=== PATIENT | male | born 1955 | race Caucasian/White ===

== ENCOUNTER 2025-09-26 16:04 | Inpatient (IN) | payer MEDICARE ==
[~2025-09-26 16:04] MED LIST: ACET1TAB55 PO; ATIV1TAB7 PO; ATRO2DRO4 SL; B-12100011 SL; DEXA4TA PO; FOLI1TAB11 PO; HYOS125TA SL; KEPP1TAB PO; MAG30ORA8 PO; MILKSUS3 PO; MOM30SS2 PO; MORP1SOL SL; MOUKOT60 MT; OLAN5ZYD PO; ONDA-282 PO; PANT40TA29 PO; PIPE4INJ IV; POLY1.4S OU; PROC10TA5 PO; SENN-186 PO; SENN-208 PO; TRAZ-252 PO; haloperidoL IM; haloperidoL IV
[2025-09-26] MEDS ORDERED: SCOPOLAMINE 1MG TRANSDERMAL PATCH TOP PRN (16:45)
[2025-09-26] MEDS ORDERED: ONDANSETRON 4MG ORAL DISINTEGRATING TAB PO PRN (16:45)
[2025-09-26] MEDS ORDERED: BISACODYL 10 MG SUPP PR PRN (16:45)
[2025-09-26] MEDS ORDERED: MORPHINE 10 MG/0.5 ML ORAL CONCENTRATE SOLUTION U/D SL PRN (16:45)
[2025-09-26] MEDS ORDERED: ACETAMINOPHEN 650 MG SUPP PR PRN (16:45)
[2025-09-26] MEDS ORDERED: LORazepam 1 MG TAB PO PRN (16:45)
[2025-09-27] MEDS: HALOPERIDOL 2 MG TAB PO SCH (07:00)
[2025-09-27] MEDS: AUGMENTIN 875 MG TAB PO SCH (09:00)
[2025-09-27] MEDS ORDERED: HALOPERIDOL LACTATE 5 MG/ML VIAL IM PRN (09:25)
[2025-09-27] MEDS ORDERED: ONDANSETRON 4MG ORAL DISINTEGRATING TAB PO PRN (09:25)
[2025-09-27] MEDS: OLANZapine ORAL DISINTEGRATING TAB 5MG PO SCH (22:33)
[2025-09-28] MEDS ORDERED: HOME MED LIST COMPLETE! XX SCH (06:30)
[2025-09-28] MEDS: MORPHINE 10 MG/0.5 ML ORAL CONCENTRATE SOLUTION U/D SL PRN (11:54)
[2025-09-28] MEDS: LORazepam 1 MG TAB PO PRN (11:54)
== END 2025-09-28 14:27 | disposition expired | DRG 951 ==
LOC: M MS5PR 16:37 → UNDOADMIN 20:15 → M ED INP 20:15 → M MS5PR 09-27 15:47
PROVIDERS: ADMIT Student in an Organized Health Care Education/Training Program; ATTEND Student in an Organized Health Care Education/Training Program
DX: Z51.5 Encounter for palliative care (principal); J96.01 Acute respiratory failure with hypoxia; K72.00 Acute and subacute hepatic failure without coma; C78.7 Secondary malignant neoplasm of liver and intrahepatic bile duct; C78.00 Secondary malignant neoplasm of unspecified lung; C79.51 Secondary malignant neoplasm of bone; N17.9 Acute kidney failure, unspecified; C79.31 Secondary malignant neoplasm of brain; G81.92 Hemiplegia, unspecified affecting left dominant side; C80.1 Malignant (primary) neoplasm, unspecified; I46.9 Cardiac arrest, cause unspecified; R57.1 Hypovolemic shock; Z79.899 Other long term (current) drug therapy